=== PATIENT | male | born 1940 | race Caucasian/White ===

== ENCOUNTER 2020-02-24 00:58 | Emergency (ER) | payer OTHER, BC ==
[~2020-02-24] VITALS: Ht 177.8 cm; Wt 97.5 kg
[2020-02-24] MEDS ORDERED: ZOCOR40 MG PO (01:24)
[2020-02-24] MEDS ORDERED: TRIAMTERENE-HC1 EAC3 PO (01:24)
[2020-02-24] MEDS ORDERED: ADULT LOW DOSE81 MG PO (01:25)
[2020-02-24] MEDS ORDERED: LISINOPRIL10 MG PO (01:25)
[2020-02-24 01:27] LABS: ABSOLUTE NEUTROPHILS 2.7 thou/uL (1.4-8.2); BASOPHILS 1.3 % (0.0-2.0); EOSINOPHILS 10.3 % (0.0-3.0); HEMATOCRIT 46.5 % (42.0-52.0); HEMOGLOBIN 16.1 gm/dL (14.0-18.0); LYMPHOCYTES 34.5 % (24.0-44.0); MCH 33.6 pg (26.0-34.0); MCHC 34.7 g/dL (28.0-37.0); MCV 96.7 fL (80.0-100.0); MONOCYTES 9.5 % (1.0-8.0); PLATELET COUNT 168 thou/uL (150-400); POLYS 44.4 % (36.0-66.0); RBC 4.81 mil/uL (4.50-6.00); RDW 13.3 % (10.5-14.5); WBC 6.1 thou/uL (4.0-11.0)
[2020-02-24 01:30] LABS: ANION GAP 10 mmol/L (7-16); BUN 21 mg/dL (7-18); CALCIUM 9.3 mg/dL (8.5-10.1); CHLORIDE 99 mmol/L (98-107); CO2 26 mmol/L (21-32); CREATININE 1.1 mg/dL (0.7-1.3); GLUCOSE 132 mg/dL (74-106); SODIUM 135 mmol/L (136-145)
[2020-02-24 01:39] LABS: TROPONIN-I <0.06 ng/mL (<0.06)
[2020-02-24 03:11] VITALS: BP 125/76
--- NOTE | 2020-02-26 09:13 | EKG ---
[facility] [place] [address] ELECTROCARDIOGRAM REPORT Name: MARIE SPEARS Room #: DEP [facility].#: [id number] Admission: 02/24/20 Attend Phys: Discharge: 02/24/20 Date of : 38 Report #: [id number] THIS REPORT FOR: cc: Radha Haji MD,Radha Ortega,Rafat Flores MD [facility] ~ THIS REPORT FOR: //name// [facility] ED Test Date: 2020-02-24 Test Time: 01:08:12 Pat Name: MARIE SPEARS Department: Room: Gender: Newsagent: prashanth young rn : 1940 Requested By: Andrea Cortez Order Number: [id number] MD: Rafat Ortega Measurements Intervals [place] Rate: 63 P: 5 OR: 184 QRS: -5 QRSD: 116 T: 52 QT: 429 QTc: 440 Interpretive Statements Sinus rhythm Incomplete right bundle branch block Borderline low voltage, extremity leads Compared to ECG 09/21/2015 15:03:41 No significant changes Electronically Signed On 02-26-2020 9:11:57 CDT by Rafat Ortega [email or web address] <ELECTRONICALLY SIGNED> By: Rafat Ortega MD, [facility] 02/26/20 0911 Rafat Ortega MD, [facility] /EPI
== END 2020-02-24 03:10 | disposition home or self-care (01) ==
LOC: ER 00:58
PROVIDERS: Emergency Medicine
DX: R42 Dizziness and giddiness (principal); R07.89 Other chest pain; I10 Essential (primary) hypertension; E78.00 Pure hypercholesterolemia, unspecified; Z79.899 Other long term (current) drug therapy; Z79.82 Long term (current) use of aspirin; Z87.891 Personal history of nicotine dependence